=== PATIENT | male | born 1975 | race African-American/Black ===

== ENCOUNTER 2016-05-29 07:27 | Day surgery (SDC) | payer OTHER ==
[2016-05-25 12:07] VITALS: BMI 19.2
[2016-05-29] MEDS ORDERED: BUPIVACAINE HCL/EPINEPHRINE/PF 30 ML VIAL IJ ONE (07:47)
[2016-05-29] MEDS ORDERED: SUCCINYLCHOLINE CHLORIDE 200 MG/10 ML VIAL ONE (07:50)
[2016-05-29] MEDS ORDERED: PROPOFOL 20 ML ONE ×3 (07:50→07:55)
[2016-05-29] MEDS ORDERED: ePHEDrine SULFATE 50 MG/1 ML AMPULE ONE (07:51)
[2016-05-29] MEDS ORDERED: MIDAZOLAM HCL 2 MG/2 ML SINGLE DOSE VIAL ONE ×2 (08:04→08:23)
[2016-05-29] MEDS ORDERED: ROPIVACAINE HCL 0.5% 30ML VIAL ONE (08:23)
[2016-05-29] MEDS ORDERED: DEXAMETHASONE SOD PHOSPHATE/PF 10 MG/ML SDV ONE (08:23)
[2016-05-29] MEDS ORDERED: ONDANSETRON 4 MG/2 ML VIAL IVPUSH PRN (08:53)
[2016-05-29] MEDS ORDERED: oxyCODONE HCL 5 MG TABLET PO PRN ×2 (08:53→10:09)
[2016-05-29] MEDS ORDERED: ROPIVACAINE 0.2% 400ML 400 ML ML NR ONE (10:00)
[2016-05-29] MEDS ORDERED: oxyCODONE HCL 10 MG SUSTAINED ACTING TABLET PO ONE (10:09)
--- NOTE | 2016-05-29 10:14 | OP ---
Operative Note - Note: Operative Date: 05/29/16 Pre-Operative Diagnosis: LEft frozen shoulder Operation: ROCIO, Arthroscopy, capsulotomy and debridement Post-Operative Diagnosis: Same as Pre-op Surgeon: Hany Kasper Anesthesia: General Operative Report Dictated: Yes
--- NOTE | 2016-05-29 10:14 | DS ---
Physical Examination Vital Signs: Vital Signs Temperature 99.0 F 05/29/16 08:00 Pulse Rate 72 05/29/16 08:00 Respiratory Rate 16 05/29/16 08:00 Blood Pressure 108/82 05/29/16 08:00 O2 Sat by Pulse Oximetry (%) 100 05/29/16 08:05 Discharge Summary Reason For Visit: ARTHROFIBROSIS LEFT SHOULDER Condition: Good - Instructions Diet, Activity, Other Instructions: Post Operative Instructions: Shoulder Arthroscopy Dr Hany Kasper 1. Pain following a Shoulder Arthroscopy is variable and can be significant. Some patients will have more pain than others. You have been provided with a prescription for medication that contains a narcotic. You are not allowed to drive while on this medication. You should NOT take Tylenol (Acetaminophen) when taking the pain medication ( it will result in an overdose). Feel free to take medications such as Ibuprofen or Naprosyn in addition to the pain medicine if you do not have any problems with the NSAID class of medications. 2. Apply ice to the shoulder for 15 minutes every hour. You may continue this for as many days as necessary. 3. You may find sleeping on an incline (reclining chair) to be more comfortable for the first few days. 4. You WILL remove your sling when the arm is comfortable. 5. You WILL MOVE THE arm as tolerated. 6. You may remove the bandages in 48 hours. You may shower at that point. 7. Place band-aids on the sutures after your shower.Do not put any creams or lotions on the incision until after the sutures are removed. 8. Please call the office to schedule a visit to have your sutures removed. 9. If for any reason you believe you may have an infection or are concerned, please feel free to call me. I can be reached through our office number 24 hours a day. 10. Please call our office with any questions; we will review the surgical findings during your post-operative visit. Disposition: HOME - Home Medications Comprehensive Discharge Medication List: Ambulatory Orders Gabapentin 300 mg PO TID 11/14/15 Oxycodone HCl/Acetaminophen [Percocet 5-325 mg Tablet] 1 - 2 tab PO DAILY Cyclobenzaprine HCl [Flexeril -] 10 mg PO BID PRN 05/25/16
[2016-05-29] MEDS ORDERED: ONDANSETRON 4 MG/2 ML VIAL ONE (10:32)
[2016-05-29] MEDS ORDERED: oxyCODONE HCL 10 MG SUSTAINED ACTING TABLET ONE (11:48)
[2016-05-29 12:33] VITALS: TEMP 97.8
[2016-05-29 12:38] VITALS: PULSE 74
[2016-05-29 14:45] VITALS: BP 121/65
--- NOTE | 2016-06-03 14:44 | PATH ---
Surgical Pathology Report Patient Name: SAUL MARAVILLA Med. Rec. #: [id number] /Age/Gender: 1975 (Age: 40) / M Account: [id number] Location: [facility] Taken: 05/29/2016 Received: 05/29/2016 Reported: 06/03/2016 Physicians: Hany Kasper M.D. Specimen(s) Received LEFT SHOULDER SHAVINGS Clinical History Arthrofibrosis left shoulder Final Diagnosis SHOULDER, LEFT, ARTHROSCOPIC SHAVINGS: FIBROCOLLAGENOUS TISSUE AND SKELETAL MUSCLE. Electronically Signed Shavon Spear M.D. Gross Description Received in formalin, labeled "left shoulder shavings," is a 0.4 x 0.3 x 0.1 cm aggregate of cyr soft tissue fragments. The formalin is filtered and the specimen is entirely submitted in one cassette. 05/29/201605/29/2016
== END 2016-05-29 13:15 | disposition home or self-care (01) ==
LOC: FASU 07:27
PROVIDERS: ATTEND Orthopaedic Surgery
PROC: 7W07X9Z Osteopathic Treatment of Upper Extremities using Other Method (ICD-10-PCS; principal; 2016-05-29 09:45)
PROC: 0RBK4ZZ Excision of Left Shoulder Joint, Percutaneous Endoscopic Approach (ICD-10-PCS; 2016-05-29 09:45)
DX: M75.02 Adhesive capsulitis of left shoulder (principal)
CPT/HCPCS: 88304-TC; 94760